=== PATIENT | male | born 1935 | race Caucasian/White ===

== ENCOUNTER 2020-12-01 16:54 | Emergency (ER) | payer OTHER, MEDICARE, BC ==
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
[2020-12-01] MEDS ORDERED: Sodium Chloride 0.9% 2.5 ML Syringe FLUSH PRN (18:13)
[2020-12-01] MEDS ORDERED: Sodium Chloride 0.9% 10 ML Syringe FLUSH PRN (18:13)
[2020-12-01] MEDS ORDERED: Diphtheria,Pertussis(Acell),Tetanus Vaccine 0.5 ML Syringe IM ONE (18:15)
[2020-12-01] MEDS ORDERED: ceFAZolin 1 GM in Premix Bag 1 BAG IV ONE (18:15)
[2020-12-01] MEDS ORDERED: Morphine 4 MG/ML Syringe IVPUSH ONE (18:26)
[2020-12-01 19:08] LABS: CARBON DIOXIDE,CO2 23.9 mmol/L (21.0-32.0); POTASSIUM,K 3.3 mmol/L (3.5-5.1)
[2020-12-01] MEDS ORDERED: Iopamidol 755 Mg/ML 100 ML Bottle IVPUSH ONE (19:15)
--- NOTE | 2020-12-01 20:22 | CR ---
Indication: Fall onto knee Comparison: None available. Technique: AP and lateral views left knee were obtained Findings: There is a multipartite superolateral patella appreciated. There is no evidence of definite displaced fracture. There is moderate tricompartmental degenerative change with medial compartmental joint space narrowing. There is marked prepatellar soft tissue swelling with a large soft tissue laceration. Impression: Marked prepatellar soft tissue swelling and soft tissue laceration without definite evidence of underlying displaced fracture. Moderate degenerative changes are appreciated. Dictated by Aubrey Campuzano MD @ 12/01/2020 8:20:[address] Aubrey Campuzano @ Dec 01 2020 8:20PM
[2020-12-01] MEDS ORDERED: Sodium Chloride 0.9% 1,000 ML IV ONE (21:26)
--- NOTE | 2020-12-01 21:44 | CT ---
CLINICAL INFORMATION: 85-year-old with open wound/laceration along the anterior left knee. TECHNIQUE: CT angiography of the left lower extremity was performed with intravenous contrast. No enteric contrast was administered and therefore the study has decreased sensitivity for detection of bowel pathology. 3D and/or MIP angiographic reconstructions were performed on a separate independent workstation with concurrent supervision of the image post processing in order to further delineate the angiographic anatomy for accurate interpretation. Contrast: 100 mL of Isovue 370 intravenous contrast was injected uneventfully prior to image acquisition. Radiation Dose Estimate (Total Exam DLP): 908.9 mGy-cm. COMPARISON: None available FINDINGS: CT Angiography Findings: LEFT lower extremity: Common iliac artery: Patent. Internal iliac artery: Patent. External iliac artery: Patent. Common femoral artery: Patent. Deep femoral artery: Patent. Superficial femoral artery: Patent. Scattered disc disease with multifocal mild to moderate stenoses. No evidence for underlying arterial injury. Popliteal artery: Scattered disease but otherwise patent. Anterior tibial artery: Diffusely diseased with multifocal short-segment stenoses/occlusions. Peroneal artery: Visualized portions are patent. Posterior tibial artery: Visualized portions are patent. Visceral Findings: Deep laceration along the anterior aspect of the left knee extending to the outer cortex of the patella. Punctate dense fragments at the deep margin of the laceration likely represent debris versus tiny chip fragments of the anterior patella. Adjacent subcutaneous hematoma and emphysema are present without evidence for underlying arterial injury. Left indirect inguinal hernia incidentally noted. IMPRESSION: 1. Deep laceration along anterior aspect of the left knee extending to the outer cortex of the patella with likely small osseous fragments at the deep margin. Adjacent subcutaneous hematoma emphysema are present. No evidence for underlying arterial injury. 2. Scattered left lower extremity atherosclerotic disease. Likely preservation of two vessel runoff via the peroneal and posterior tibial arteries. Anterior tibial artery demonstrates diffuse disease. Please note that all CT scans at this facility use dose modulation, iterative reconstruction, and/or weight-based dosing when appropriate to reduce radiation dose to as low as reasonably achievable. Dictated by Agusto Eli MD @ 12/02/2020 9:31:[address] Agusto Eli @ Dec 02 2020 9:31AM
[2020-12-01 22:14] VITALS: BP 134/71; PULSE 83
== END 2020-12-01 22:15 ==
LOC: MW.ED 16:54
DX: S81.012A Laceration without foreign body, left knee, initial encounter (principal); R55 Syncope and collapse; I45.10 Unspecified right bundle-branch block; I10 Essential (primary) hypertension; Z23 Encounter for immunization; V59.9XXA Occupant (driver) (passenger) of pick-up truck or van injured in unspecified traffic accident, initial encounter
CPT/HCPCS: 36415; 73560; 73706; 80053; 82550; 83605; 85025; 90471; 90715; 96365; 96375; 99284; J0690; J2270; J7030; Q9967